=== PATIENT | male | born 1945 | race Caucasian/White ===

== ENCOUNTER 2017-08-01 05:33 | Day surgery (SDC) | payer MEDICARE ==
[~2017-08-01] VITALS: Ht 172.7 cm; Wt 73.0 kg
[2017-08-01] VITALS (7 sets, daily range): BP systolic 99–114; BP diastolic 63–72; PULSE 45–86; TEMP 96.6–97.7
[~2017-08-01 05:33] MED LIST: ASPIR-LOW81 MG PO; CALCIUM200 MG PO; CORGARD20 MG; DEMEROL 50M50 MG/TAB PO; FISH OIL1 IU PO; HYDROCODONE/APAP; IMITREX50 MG PO; LAMICTAL; LIDOCAINE; MAXALT10 MG PO; MEPERIDINE HCL50 MG PO; MVI; TESSALON PERLE200 MG PO; ZOCOR 20MG20 MG PO; [UNRECOGNIZED DRUG - OTHER]
[2017-08-01] MEDS ORDERED: PRAVACHOL10 MG PO (06:20)
[2017-08-01] MEDS ORDERED: FLOMAX 0.40.4 MG/CAP PO (06:20)
[2017-08-01] MEDS ORDERED: NORCO 325 MG-51 TAB PO (09:44)
== END 2017-08-01 12:24 | disposition home or self-care (01) ==
LOC: SDCO 05:33
DX: K40.90 Unilateral inguinal hernia, without obstruction or gangrene, not specified as recurrent (principal); E78.00 Pure hypercholesterolemia, unspecified; G43.909 Migraine, unspecified, not intractable, without status migrainosus; F17.210 Nicotine dependence, cigarettes, uncomplicated; Z90.49 Acquired absence of other specified parts of digestive tract
CPT/HCPCS: C1781; J0690; J1100; J1885; J2250; J2270; J2405; J2704; J2710; J3010; J7120

== ENCOUNTER 2018-05-17 21:01 | Emergency (ER) | payer MEDICARE ==
[~2018-05-17] VITALS: Ht 172.7 cm; Wt 67.3 kg
[~2018-05-17 21:01] MED LIST changes: +FLOMAX 0.40.4 MG/CAP PO; +NORCO 325 MG-51 TAB PO; +PRAVACHOL10 MG PO
[2018-05-17 21:05] VITALS: TEMP 100.6
[2018-05-17] MEDS ORDERED: LEVAQUIN 5500 MG/TA1 PO (21:33)
[2018-05-17 22:30] VITALS: BP 101/72; PULSE 117
== END 2018-05-17 22:40 | disposition home or self-care (01) ==
LOC: COL.ER 21:01
DX: J18.1 Lobar pneumonia, unspecified organism (principal); F17.210 Nicotine dependence, cigarettes, uncomplicated

== ENCOUNTER → 2018-08-28 | Outpatient (CLI) | payer MEDICARE ==
[~2018-08-28] MED LIST changes: +LEVAQUIN 5500 MG/TA1 PO
== END ==
LOC: COL.RAD 10:31
DX: R91.8 Other nonspecific abnormal finding of lung field (principal)
CPT/HCPCS: Q9967

== ENCOUNTER 2018-09-19 08:58 | Outpatient (CLI) | payer MEDICARE ==
[~2018-09-19] VITALS: Ht 172.7 cm; Wt 72.7 kg
[2018-09-19] VITALS (9 sets, daily range): BP systolic 129–1332; BP diastolic 82–96; PULSE 56–81; TEMP 98
[2018-09-19] MEDS ORDERED: VITAMIN D 1001000 IU (10:13)
[2018-09-19] MEDS ORDERED: EXCEDRIN1 TAB PO (10:14)
== END 2018-09-19 14:05 | disposition home or self-care (01) ==
LOC: COL.RAD 08:58
DX: J98.4 Other disorders of lung (principal)
CPT/HCPCS: 27584

== ENCOUNTER 2019-04-01 15:15 | Outpatient (RCR) | payer MEDICARE ==
[~2019-04-01 15:15] MED LIST changes: +EXCEDRIN1 TAB PO; +VITAMIN D 1001000 IU
== END 2019-04-03 11:22 | disposition home or self-care (01) ==
LOC: WSPT 15:15
DX: G57.02 Lesion of sciatic nerve, left lower limb (principal)

== ENCOUNTER → 2019-05-20 | Outpatient (CLI) | payer MEDICARE | LOC: COL.RAD 09:30 | DX: M25.552 Pain in left hip (principal) | CPT/HCPCS: J3301; Q9967 ==

== ENCOUNTER → 2021-01-25 | Outpatient (CLI) | payer MEDICARE | LOC: COL.RAD 01-19 09:45 | DX: I71.4 Abdominal aortic aneurysm, without rupture (principal) ==

== ENCOUNTER → 2022-12-22 | Outpatient (CLI) | payer MEDICARE ==
[2022-12-22 12:14] LABS: CALCIUM 9.3 mg/dL (8.4-10.2); CREATININE, serum 0.97 mg/dL (0.72-1.25); POTASSIUM 4.5 mmol/L (3.5-4.5)
== END ==
LOC: COL.RAD 11:24 → COL.LAB 11:24 → COL.RAD 11:30
PROVIDERS: Internal Medicine Cardiovascular Disease
DX: I71.43 Infrarenal abdominal aortic aneurysm, without rupture (principal); K80.20 Calculus of gallbladder without cholecystitis without obstruction; I25.10 Atherosclerotic heart disease of native coronary artery without angina pectoris; K57.30 Diverticulosis of large intestine without perforation or abscess without bleeding; N40.0 Benign prostatic hyperplasia without lower urinary tract symptoms
CPT/HCPCS: Q9967